=== PATIENT | female | born 1990 | race Caucasian/White ===

== ENCOUNTER 2021-02-19 09:55 | Emergency (ER) | payer OTHER ==
[~2021-02-19] VITALS: Ht 149.9 cm; Wt 68.0 kg
--- NOTE | 2021-02-19 10:05 | NUR ---
Pt. brought in by with hives, hives all over body with exception of palms, soles of feet and genital area, pt. states this started February 15 and she has been seen 2 X in the ER, currently on prednisone and the hives will improve and then return, itchy, uncomfortable, and tearful, has mild SOB, O2 sat 98% on RA. Pt. has no idea what could be cause, denies any new foods, pets, detergents etc.
[2021-02-19 10:14] VITALS: BP_SYST 115
--- NOTE | 2021-02-19 10:15 | NUR ---
ER at bedside examining patient.
[2021-02-19] MEDS ORDERED: EPINEPHrine 1 MG/ML AMP ONE (10:24)
[2021-02-19] MEDS ORDERED: EPINEPHrine 1 MG/ML AMP IM ONE (10:30)
[2021-02-19] MEDS ORDERED: FAMOTIDINE 20 MG TABLET PO ONE (10:30)
[2021-02-19] MEDS ORDERED: DIPHENHYDRAMINE INJ 50 MG/ML VIAL IM ONE (10:30)
[2021-02-19] MEDS ORDERED: predniSONE 20 MG TABLET PO ONE (10:30)
[2021-02-19 10:42] LABS: BASOPHILS % (AUTO) 0.1 % (0.0-2.0); EOSINOPHILS % (AUTO) 0.2 % (0.0-4.0); HEMATOCRIT 38.1 % (36-48); HEMOGLOBIN 12.8 g/dL (12.0-16.0); LYMPHOCYTES # (AUTO) 1.7 K/uL (1.0-5.5); LYMPHOCYTES % (AUTO) 18.8 % (20.5-51.5); MEAN CORPUSCULAR HEMOGLOBIN 28 pg (27-31); MEAN CORPUSCULAR HGB CONC 34 % (32-36); MEAN CORPUSCULAR VOLUME 84 fL (79.0-98.0); MONOCYTES # (AUTO) 0.6 K/uL (0.0-1.0); MONOCYTES % (AUTO) 6.4 % (1.7-9.3); NEUTROPHILS # (AUTO) 6.6 K/uL (1.8-7.7); NEUTROPHILS % (AUTO) 74.5 % (40.0-70.0); PLATELET COUNT (AUTO) 245 K/uL (130-430); RED BLOOD CELL COUNT(AUTO) 4.54 MIL/uL (4.2-6.2); RED CELL DISTRIBUTION WIDTH 13.4 % (9.0-15.0); WHITE BLOOD COUNT (AUTO) 8.8 K/uL (4.8-10.8)
[2021-02-19 10:54] LABS: CALCIUM 8.7 mg/dL (8.4-11.0); CREATININE 0.79 mg/dL (0.55-1.30); POTASSIUM 3.3 mmol/L (3.5-5.1)
[2021-02-19 10:58] LABS: ALBUMIN 3.7 g/dL (3.4-4.8); C-REACTIVE PROTEIN QUANT 4.9 mg/dL (0-0.5); TOTAL BILIRUBIN 0.3 mg/dL (0.0-1.0)
[2021-02-19 11:11] LABS: BILIRUBIN,URINE 1+ (NEGATIVE); BLOOD, URINE NEGATIVE (NEGATIVE); CLARITY/URINE CLEAR (CLEAR); COLOR,URINE YELLOW (YELLOW); GLUCOSE,URINE NEGATIVE (NEGATIVE); KETONES,URINE 1+ (NEGATIVE); LEUKOCYTE ESTERASE ,URINE NEGATIVE (NEGATIVE); NITRITE, URINE NEGATIVE (NEGATIVE); PH,URINE 5.5 (5.0-8.0); PROTEIN URINE 1+ (NEGATIVE)
[2021-02-19 11:27] LABS: ERYTHROCYTE SEDIMENTATION RATE 12 MM/HR (0-20)
[2021-02-19] MEDS ORDERED: FAMO20TA8 PO (11:49)
--- NOTE | 2021-02-19 11:53 | NUR ---
Dr. Lara at bedside reviewing POC
[2021-02-19] MEDS ORDERED: EPINEPHrine 1 MG/ML VIAL IM ONE (12:00)
[2021-02-19 12:03] LABS: BACTERIA,URINE FEW /HPF (None Seen); CALCIUM OXALATE CRYSTALS,UR 30-50 /HPF (None Seen); MUCUS,URINE 3+ /LPF (None Seen); RBC,URINE 0-3 /HPF (0-3); WBC,URINE 0-3 /HPF (0-3)
[2021-02-19 12:11] VITALS: BP_SYST 132
--- NOTE | 2021-02-19 12:12 | NUR ---
Patient given written and verbal discharge instructions and verbalizes understanding. Dr. Lara discussed with patient the results and treatment provided. Patient in stable condition. ID arm band removed. Rx of pepcid given. Patient educated on pain management and to follow up with PMD. Pain Scale 0. Opportunity for questions provided and answered. Medication side effect fact sheet provided.
== END 2021-02-19 12:12 | disposition home or self-care (01) ==
LOC: SED 09:55
DX: L50.0 Allergic urticaria (principal)
CPT/HCPCS: 36415; 80053; 81000; 81025; 85025; 85610; 85651; 85730; 86140; 96372; 99285; J0171; J1200; J7512

== ENCOUNTER 2021-02-22 19:58 | Emergency (ER) | payer OTHER ==
[~2021-02-22] VITALS: Ht 124.5 cm; Wt 72.6 kg
[~2021-02-22 19:58] MED LIST: FAMO20TA8 PO
[2021-02-22 20:23] VITALS: BP_SYST 134
[2021-02-22] MEDS ORDERED: EPINEPHrine 1 MG/ML VIAL SUBCUT ONE (22:45)
[2021-02-22] MEDS ORDERED: NACL 0.9% 1,000 ML IV ONE (22:45)
[2021-02-22] MEDS ORDERED: methylPREDNISolone SOD SUCC/PF 62.5 MG/ML VIAL IVP ONE (22:45)
[2021-02-22] MEDS ORDERED: DIPHENHYDRAMINE INJ 50 MG/ML VIAL IVP ONE (22:45)
[2021-02-22] MEDS ORDERED: EPINEPHrine 1 MG/ML AMP ONE (23:08)
[2021-02-22 23:50] LABS: BASOPHILS % (AUTO) 0.1 % (0.0-2.0); EOSINOPHILS # (AUTO) 0.1 K/uL (0.0-0.4); EOSINOPHILS % (AUTO) 0.7 % (0.0-4.0); HEMATOCRIT 33.2 % (36-48); HEMOGLOBIN 11.2 g/dL (12.0-16.0); LYMPHOCYTES # (AUTO) 2.2 K/uL (1.0-5.5); LYMPHOCYTES % (AUTO) 22.9 % (20.5-51.5); MEAN CORPUSCULAR HEMOGLOBIN 28 pg (27-31); MEAN CORPUSCULAR HGB CONC 34 % (32-36); MEAN CORPUSCULAR VOLUME 83 fL (79.0-98.0); MONOCYTES # (AUTO) 0.7 K/uL (0.0-1.0); MONOCYTES % (AUTO) 7.5 % (1.7-9.3); NEUTROPHILS # (AUTO) 6.5 K/uL (1.8-7.7); NEUTROPHILS % (AUTO) 68.8 % (40.0-70.0); PLATELET COUNT (AUTO) 292 K/uL (130-430); RED BLOOD CELL COUNT(AUTO) 3.99 MIL/uL (4.2-6.2); RED CELL DISTRIBUTION WIDTH 12.9 % (9.0-15.0); WHITE BLOOD COUNT (AUTO) 9.5 K/uL (4.8-10.8)
[2021-02-23 00:10] LABS: CALCIUM 8.3 mg/dL (8.4-11.0); CREATININE 0.7 mg/dL (0.55-1.30)
[2021-02-23 00:28] LABS: ALBUMIN 3.3 g/dL (3.4-4.8); TOTAL BILIRUBIN 0.2 mg/dL (0.0-1.0)
[2021-02-23 00:30] LABS: POTASSIUM 2.8 mmol/L (3.5-5.1)
[2021-02-23] MEDS ORDERED: POTASSIUM CHLORIDE 20 MEQ/PKT PACKET PO ONE (00:30)
[2021-02-23] MEDS ORDERED: FEXO180T94 PO (01:10)
[2021-02-23] MEDS ORDERED: PRED10TA PO (01:10)
[2021-02-23 01:25] VITALS: BP_SYST 123
== END 2021-02-23 01:25 | disposition home or self-care (01) ==
LOC: SED 19:58
DX: L50.9 Urticaria, unspecified (principal); Z79.899 Other long term (current) drug therapy
CPT/HCPCS: 36415; 80053; 85025; 96372; 96374; 96375; 99291; J0171; J1200; J2930